=== PATIENT | female | born 1990 | race Caucasian/White ===

== ENCOUNTER 2019-08-25 21:20 | Emergency (ER) | payer OTHER ==
[2019-08-25 21:28] VITALS: BP 112/73; PULSE 92; RESP 18; TEMP 98
--- NOTE | 2019-08-25 21:44 | ED ---
ENT HPI - General Chief complaint: Dental/Oral Stated complaint: Dental Pain Time Seen by Provider: 08/25/19 21:30 Source: patient Mode of arrival: ambulatory Limitations: no limitations - History of Present Illness Initial comments: This patient is a 29-year-old woman who presents with left upper molar pain. Patient states she has been having intermittent periods of pain with this tooth since October. She states it will flareup for a number days to weeks and then she'll take course of antibiotics and it will go away for a couple of months but recurs. The patient states that she is aware that the tooth is impacted in that part of it has been fractured off, and she realizes that she does need CAD dentist to resolve this issue. She is not having any other symptoms. The pain is aching, moderate intensity. She does have a little bit of improvement with naproxen. The pain is sometimes worse when she eats. No fever or chills. No pain into the orbit. No vision change. No headache. There is no swelling that she has noted. No symptoms down into the neck or into the ear. MD complaint: tooth pain -: month(s) Location: tooth # (16) Severity: moderate Quality: aching Consistency: intermittent Improves with: NSAID Worsens with: none Associated Symptoms: toothache - Related Data Previous Rx's Medication Instructions Recorded Amoxicillin 875 mg PO Q12HR #14 tablet 08/25/19 Allergies Allergy/AdvReac Type Severity Reaction Status Date / Time ceftriaxone [From Rocephin] Allergy Rash/Hives Verified 08/25/19 21:29 clindamycin Allergy Rash/Hives Verified 08/25/19 21:29 morphine Allergy Itching Verified 08/25/19 21:29 Penicillins Allergy Unknown Verified 08/25/19 21:29 sulfamethoxazole Allergy Unknown Verified 08/25/19 21:29 [From Bactrim] trimethoprim [From Bactrim] Allergy Unknown Verified 08/25/19 21:29 Review of Systems ROS Statement: Those systems with pertinent positive or pertinent negative responses have been documented in the HPI. ROS Other: All systems not noted in ROS Statement are negative. Constitutional: Denies: fever, chills Eyes: Denies: eye pain, eye discharge, vision change ENT: Reports: dental pain. 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 Absent: scleral icterus, conjunctival injection ENT exam: Present: mucous membranes moist, TM's normal bilaterally, normal external ear exam, other (There is fracture of tooth #16 and tenderness. There is no abscess. Oral exam is otherwise normal.) Neck exam: Present: normal inspection, full ROM. Absent: tenderness, meningismus, lymphadenopathy Respiratory exam: Present: normal lung sounds bilaterally. Absent: respiratory distress, wheezes, rales, rhonchi, stridor Cardiovascular Exam: Present: regular rate, normal rhythm, normal heart sounds. Absent: systolic murmur, diastolic murmur, rubs, gallop Neurological exam: Present: alert Skin exam: Present: warm, dry, intact, normal color. Absent: rash Course Vital Signs 08/25/19 21:24 Temperature 98 F Pulse Rate 92 Respiratory 18 Rate Blood Pressure 112/73 O2 Sat by Pulse 97 Oximetry Disposition Clinical Impression: Fracture of tooth, Impacted molar Disposition: HOME SELF-CARE Condition: Good Instructions (If sedation given, give patient instructions): Toothache (ED) Prescriptions: Amoxicillin 875 mg PO Q12HR #14 tablet Is patient prescribed a controlled substance at d/c from ED?: No Referrals: Aries Cisneros DO [Primary Care Provider] - 1-2 days
== END 2019-08-25 21:55 | disposition home or self-care (01) ==
LOC: EC 21:20
DX: S02.5XXA Fracture of tooth (traumatic), initial encounter for closed fracture (principal); K01.1 Impacted teeth; F17.200 Nicotine dependence, unspecified, uncomplicated; Z88.0 Allergy status to penicillin; Z88.1 Allergy status to other antibiotic agents; Z88.2 Allergy status to sulfonamides; Z88.5 Allergy status to narcotic agent; Z86.14 Personal history of Methicillin resistant Staphylococcus aureus infection; X58.XXXA Exposure to other specified factors, initial encounter
CPT/HCPCS: 99282